=== PATIENT | male | born 2005 | race Caucasian/White ===

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

== ENCOUNTER 2024-02-27 12:08 | Inpatient (IN) | payer OTHER ==
[~2024-02-27] VITALS: Ht 185.4 cm; Wt 113.3 kg
[~2024-02-27 12:08] MED LIST: LEXA1TAB PO
[2024-02-27 13:03] LABS: HEMATOCRIT 44.9 % (42.0-52.0); HEMOGLOBIN 16.4 g/dl (13.5-17.5); MEAN CORPUSCULAR HEMOGLOBIN 30.7 pg (27.0-33.0); MEAN CORPUSCULAR HGB CONC 36.5 g/dl (32.0-36.5); MEAN CORPUSCULAR VOLUME 84.1 fl (80.0-96.0); PLATELET COUNT, AUTOMATED 218 10^3/uL (150-450); RED BLOOD COUNT 5.34 10^6/uL (4.30-6.10); WHITE BLOOD COUNT 7.7 10^3/uL (4.0-10.0)
[2024-02-27 13:23] LABS: AMPHETAMINES LEVEL URINE NEGATIVE (NEGATIVE); BARBITURATES URINE NEGATIVE (NEGATIVE); BENZODIAZEPINES URINE NEGATIVE (NEGATIVE); COCAINE METABOLITE URINE NEGATIVE (NEGATIVE); METHADONE URINE NEGATIVE (NEGATIVE); OPIATES URINE NEGATIVE (NEGATIVE)
[2024-02-27 13:24] LABS: CANNABINOIDS URINE NEGATIVE (NEGATIVE); PHENCYCLIDINE URINE NEGATIVE (NEGATIVE)
[2024-02-27 13:25] LABS: ETHYL ALCOHOL (ETHANOL) < 0.003 % (0.000-0.010)
[2024-02-27 13:28] LABS: ALBUMIN 4.2 G/DL (3.2-5.2); ALKALINE PHOSPHATASE 49 U/L (46-116); ALT/SGPT 49 U/L (7.0-40); AST/SGOT 51 U/L (<34); BILIRUBIN,DIRECT 0.2 MG/DL (<0.4); BILIRUBIN,TOTAL 0.7 MG/DL (0.3-1.2); BLOOD UREA NITROGEN 9 MG/DL (9-23); CALCIUM LEVEL 9.5 MG/DL (8.5-10.1); CARBON DIOXIDE LEVEL 26 MMOL/L (20-31); CHLORIDE LEVEL 104 MMOL/L (98-107); CREATININE FOR GFR 0.77 MG/DL (0.70-1.30); GLUCOSE, FASTING 82 MG/DL (60-100); SALICYLATE LEVEL < 3.0 MG/DL (<30); SODIUM LEVEL 140 MMOL/L (136-145); TOTAL PROTEIN 7.2 G/DL (5.7-8.2)
[2024-02-27 13:31] LABS: THYROID STIMULATING HORMONE 0.797 uIU/ML (0.48-4.17)
[2024-02-27] MEDS ORDERED: BUPR-597 PO (14:09)
[2024-02-27] MEDS ORDERED: PRAZ5CAP PO (14:09)
[2024-02-27] MEDS ORDERED: IBUP200C25 PO (14:09)
[2024-02-27] MEDS ORDERED: HOME MED LIST COMPLETE! XX SCH (14:10)
[2024-02-27] MEDS ORDERED: diphenhydrAMINE 25MG CAP PO PRN (15:30)
[2024-02-27] MEDS ORDERED: traZODone 50 MG TAB PO PRN (15:30)
[2024-02-27] MEDS ORDERED: MOM 30ML SUSPENSION UDC PO PRN (15:30)
[2024-02-27] MEDS ORDERED: MAALOX 30 ML SUSP *UDC PO PRN (15:30)
[2024-02-27 21:45] VITALS: BP 153/67; TEMP 97; O2SAT 97
[2024-02-27] MEDS: PRAZOSIN 1 MG CAP PO ONE (22:19)
[2024-02-28 06:47] VITALS: BP 154/68; TEMP 97.5; O2SAT 97
[2024-02-28 16:21] VITALS: BP 144/69; TEMP 97.6; O2SAT 98
[2024-02-28 18:10] LABS: HEPATITIS B SURFACE ANTIGEN NEGATIVE (NEGATIVE)
[2024-02-28 18:30] LABS: HEPATITIS B CORE ANTIBODY IGM NEGATIVE (NEGATIVE); HEPATITIS C VIRUS ABY INDEX 0.05 INDEX (<0.8)
[2024-02-28] MEDS: PRAZOSIN 1 MG CAP PO ONE (21:00)
[2024-02-29 06:32] VITALS: BP 154/70; TEMP 97.2; O2SAT 96
[2024-02-29] MEDS: buPROPion **XL** TABLET 150MG (WELLBUTRIN XL) PO SCH (11:16)
[2024-02-29 15:53] VITALS: BP 151/67; TEMP 97.8; O2SAT 99
[2024-02-29] MEDS: PRAZOSIN 1 MG CAP PO SCH (20:51)
[2024-03-01 06:36] VITALS: BP 151/63; TEMP 97.5; O2SAT 98
[2024-03-01 14:54] VITALS: BP 147/92; TEMP 97.4; O2SAT 98
[2024-03-02 06:32] VITALS: BP 116/56; TEMP 97.4; O2SAT 99
[2024-03-02 15:46] VITALS: BP 166/72; TEMP 98.2; O2SAT 98
[2024-03-02] MEDS: IBUPROFEN 400MG TAB PO PRN (18:08)
[2024-03-02 18:34] VITALS: BP 149/74
[2024-03-03 06:04] VITALS: BP 145/62; TEMP 97.8; O2SAT 98
[2024-03-03 15:44] VITALS: BP 138/76; TEMP 98; O2SAT 99
[2024-03-04 06:19] VITALS: BP 128/61; TEMP 97.8; O2SAT 98
[2024-03-04 16:07] VITALS: BP 150/70; TEMP 98.6; O2SAT 99
[2024-03-05 06:00] VITALS: BP 148/89; TEMP 97.2; O2SAT 98
[2024-03-05 16:09] VITALS: BP 151/66; TEMP 97.9; O2SAT 96
[2024-03-05 20:35] VITALS: BP 163/72
[2024-03-05] MEDS: ACETAMINOPHEN TAB 650MG DOSE (2X325MG) PO PRN (20:36)
[2024-03-06] MEDS ORDERED: PRAZ1CAP PO (09:30)
[2024-03-06] MEDS ORDERED: BUPR150T12 PO (09:30)
== END 2024-03-06 10:31 | disposition home or self-care (01) | DRG 885 ==
LOC: M ED 12:08 → EDBD 12:08 → M ED INP 15:26 → M PSY 21:40
PROVIDERS: ADMIT Psychiatry & Neurology Psychiatry; ATTEND Psychiatry & Neurology Psychiatry
DX: F33.9 Major depressive disorder, recurrent, unspecified (principal); Z91.51 Personal history of suicidal behavior; Z81.8 Family history of other mental and behavioral disorders; Z79.899 Other long term (current) drug therapy; Z88.1 Allergy status to other antibiotic agents; Z88.5 Allergy status to narcotic agent; Z91.018 Allergy to other foods; R74.01 Elevation of levels of liver transaminase levels; M25.572 Pain in left ankle and joints of left foot

== ENCOUNTER → 2024-08-09 | Outpatient (REF) ==
[~2024-08-09] MED LIST changes: +BUPR-597 PO; +BUPR150T12 PO; +IBUP200C25 PO; +PRAZ1CAP PO; +PRAZ5CAP PO
== END ==
LOC: M PLAIMG 10:02
PROVIDERS: ATTEND Internal Medicine
DX: M25.531 Pain in right wrist (principal); M25.532 Pain in left wrist; J34.89 Other specified disorders of nose and nasal sinuses; R07.9 Chest pain, unspecified